=== PATIENT | male | born 1985 | race Caucasian/White ===

== ENCOUNTER 2023-04-08 20:27 | Emergency (ER) | payer OTHER, SELFPAY ==
--- NOTE | 2023-04-08 20:15 | XR_ITS ---
The [address] [address] Patient Name: ZACH TA MRN: [id number] date: 1985 Sex: M Assigned Patient Location: ED.MAIN Current Patient Location: ED.MAIN Accession/Order Number: [id number] Exam Date: 04/08/2023 21:05 Report Date: 04/08/2023 21:40 At the request of: SOILA CAMPO Procedure: XR hand SARAH min 3v EXAM: XR hand SARAH min 3v HISTORY: Bilateral hand pain COMPARISON: None. TECHNIQUE: 3 views of each hand FINDINGS: No osseous lesion, fracture, dislocation or subluxation. Joint spaces are normal. No visualized effusion. No visualized soft tissue edema. IMPRESSION: Normal x-rays Electronically authenticated by: RETA WRIGHT Date: 04/08/2023 21:40
[2023-04-08 20:53] VITALS: BP 155/117; PULSE 81; RESP 16; TEMP 36.8; O2SAT 97; BMI 25.7
[2023-04-08 21:05] VITALS: O2SAT 98
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
== END 2023-04-08 21:56 | disposition home or self-care (01) ==
PROVIDERS: Emergency Provider Internal Medicine
DX: S63.92XA Sprain of unspecified part of left wrist and hand, initial encounter (principal); S63.91XA Sprain of unspecified part of right wrist and hand, initial encounter; Y04.1XXA Assault by human bite, initial encounter
CPT/HCPCS: 73130; 99283